=== PATIENT | male | born 1950 | race Caucasian/White ===

== ENCOUNTER 2017-01-23 07:40 | Day surgery (SDC) | payer MEDICARE ==
--- NOTE | 2017-01-23 07:04 | History and Physical Report ---
CHIEF COMPLAINT/HISTORY OF CHIEF COMPLAINT: This patient presents with a history of intractable post laminectomy radiculitis with an implanted spinal infusion device infusing Hydromorphone and Bupivacaine with battery depletion and he is here for battery change. PAST MEDICAL HISTORY: Chronic obstructive pulmonary disease and cardiac arrhythmia. PAST SURGICAL HISTORY: Spinal surgery, pelvic surgery, and pump placement. MEDICATIONS ON ADMISSION: List to be provided. ALLERGIES: ASPIRIN, CODEINE AND MORPHINE. FAMILY/PSYCHOSOCIAL HISTORY: Social history - Social alcohol and caffeine. Family history - Noncontributory. SYSTEMS REVIEW: The patient is appropriate in no acute distress. The remainder of the systems review is positive for lung problems and cardiac disease. PHYSICAL EXAMINATION: Height is 5'11", weight is 170. Vital signs are not available. HEENT: Within normal limits. LUNGS: Clear. HEART: Regular rate and rhythm,. ABDOMEN: Nontender. MUSCULOSKELETAL: Midline incision for the spinal catheter is in place and the incision is intact. The pump pouch at the left lower abdominal quadrant is intact. Sensory mcmillan are intact. NEUROLOGIC: Cranial nerves are intact. IMPRESSION: 1. POST LUMBAR LAMINECTOMY SYNDROME, ICD10 CODE M96.1. 2. LUMBAR RADICULITIS, ICD10 CODE M54.16 AND M54.17. 3. IMPLANTED SPINAL INFUSION DEVICE WITH HYDROMORPHONE AND BUPIVACAINE. PLAN: We will inspect the device, but he is here for battery change on an outpatient basis. OMAR THOMPSON D.O. Date & Time JOB NUMBER: [id number] MTDD
[~2017-01-23 07:40] MED LIST: ACETAMINOPHEN 1000MG/100 ML PREMIX IV ONE; BUPIVACAINE HCL IV ONE; CEFAZOLIN 2 Gram 50 ML IVPB ONE; FAMOTIDINE 20MG TABLET PO ONE; HYDROMORPHONE HCL IV ONE; HYDROMORPHONE HCL/PF 0.002 MG in 0.9 % SODIUM CHLORIDE 10ML VIA 0.998 ML IVP ONE; MECLIZINE 25 MG TABLET PO ONE; METOCLOPRAMIDE 10 MG TABLET PO ONE; [UNRECOGNIZED DRUG - OTHER] IV ONE
[2017-01-23] MEDS ORDERED: MIDAZOLAM HCL 2MG/2ML VIAL IV ONE (14:00)
[2017-01-23] MEDS ORDERED: *PACU ONLY* KETAMINE HCL 10 MG/ML (20ML) VIAL IV ONE (14:00)
[2017-01-23] MEDS ORDERED: FENTANYL PF 100MCG/2ML VIAL IV ONE (14:00)
[2017-01-23] MEDS ORDERED: BUPIVACAINE 0.5% W/EPI MPF 30 ML VIAL IVP ONE (14:00)
[2017-01-23] MEDS ORDERED: CEFAZOLIN 1G VIAL IM ONE (14:00)
[2017-01-23] MEDS ORDERED: LIDOCAINE 1% W/EPI 1:200,000 MPF 30ML SQ ONE (14:00)
[2017-01-23] MEDS ORDERED: PROPOFOL 10 MG/ML VIAL IV ONE (14:00)
[2017-01-23] MEDS ORDERED: OXYCODONE/APAP 10MG-325MG TABLET PO ONE (14:00)
--- NOTE | 2017-01-25 16:54 | Operative Note ---
DATE OF SURGERY: 01/23/2017 PREOPERATIVE DIAGNOSES: 1. Post lumbar laminectomy syndrome, ICD10 code M96.1. 2. Lumbar radiculitis, ICD10 code M54.16 and M54.17. 3. Spinal opiate infusion device hydromorphone and bupivacaine with battery depletion. OPERATION: Incision, subcutaneous dissection, and removal and replacement of spinal opiate infusion pump battery. Surgeon: Peterson Lucas DO Anesthesia: Local with sedation. Anesthesia Provider: Jose Cline Indication: This patient presents with a history of intractable lumbar radiculitis. Over the last number of refills and reprogramming, battery depletion was identified. He is here for replacement of pump battery without changes to his infusion. PROCEDURE: Intravenous line, vital signs monitoring, IV sedation. Prepped, draped, sterile technique. Under imaging, the pump at the left lower abdominal quadrant was infiltrated with local. Incision made and subcutaneous dissection was conducted to the pump pouch. The pump was then exteriorized and from the internal catheter. A new pump placed onto the field prefilled with hydromorphone and bupivacaine was then interfaced with the underlying catheter. Antibiotic irrigation, Bovie hemostasis. The pump was then placed in the field and secured to the posterior fascia with nonabsorbable suture. The incision was then closed with Vicryl for fascia, running subcuticular Vicryl for skin. The pump was programmed back to original parameters delivering by flex dosing 7.5 mg/day. Dermabond dressing was placed on the wound. After the pump was programmed, he was transported to the recovery room stable. No side effects from the procedure or sedation. DISCHARGE INSTRUCTIONS: 1. Site is to remain clean and dry. No showering or bathing in any way, although the Dermabond will allow showering. 2. Standard medication resumed including Levaquin antibiotic 500 mg once a day for 14 days. 3. Spinal opioid side effects of respiratory depression, nausea, vomiting, constipation, urinary retention, lightheadedness, and rash have all been discussed and reviewed. He will be seen in the office in the next 3-5 days to evaluate the incision. Until then, his activity level should remain low. Peterson Lucas DO CC: Dr. Lola CORREIA
== END 2017-01-23 11:05 | disposition home or self-care (01) ==
LOC: SUR 07:40
PROVIDERS: ATTEND Pain Medicine Interventional Pain Medicine
DX: T85.695A Other mechanical complication of other nervous system device, implant or graft, initial encounter (principal); M96.1 Postlaminectomy syndrome, not elsewhere classified; M54.16 Radiculopathy, lumbar region; M54.17 Radiculopathy, lumbosacral region; J44.9 Chronic obstructive pulmonary disease, unspecified
CPT/HCPCS: 62362; 00300; 62367; Q9967; J1170; J3010; J0690